=== PATIENT | male | born 1980 | race Caucasian/White ===

== ENCOUNTER 2022-10-29 07:14 | Emergency (ER) | payer SELFPAY ==
[2022-10-29] MEDS ORDERED: Ketorolac Tromethamine 30 MG/ML VIAL ONE (09:02)
== END 2022-10-29 09:57 | disposition home or self-care (01) ==
LOC: ERS 07:14
DX: M79.672 Pain in left foot (principal); F17.210 Nicotine dependence, cigarettes, uncomplicated
CPT/HCPCS: 96372; J1885

== ENCOUNTER 2022-11-13 10:46 | Emergency (ER) | payer SELFPAY | END 2022-11-13 12:26 | disposition home or self-care (01) | LOC: ERS 10:46 | DX: J06.9 Acute upper respiratory infection, unspecified (principal); F17.210 Nicotine dependence, cigarettes, uncomplicated | CPT/HCPCS: 71045; 87804 ==

== ENCOUNTER 2022-11-27 10:35 | Emergency (ER) | payer SELFPAY ==
[2022-11-27] MEDS ORDERED: Ketorolac Tromethamine 30 MG/ML VIAL ONE (11:23)
== END 2022-11-27 11:51 | disposition home or self-care (01) ==
LOC: ERS 10:35
DX: M10.9 Gout, unspecified (principal); F17.210 Nicotine dependence, cigarettes, uncomplicated
CPT/HCPCS: 96372; 99283; J1885

== ENCOUNTER 2023-05-03 21:17 | Emergency (ER) | payer SELFPAY ==
[2023-05-03 22:08] LABS: #Eosinphils 0.2 thou/uL (0.0-0.7); #Monocytes 0.5 thou/uL (0.11-0.59); #Neutrophils 4.8 thou/uL (1.40-6.50); %Basophils 0.3 % (0.0-1.0); %Eosinophils 2.4 % (0.0-10.0); %Lymphocytes 35.5 % (21.0-51.0); %Monocytes 5.8 % (0.0-10.0); %Neutrophils 55.7 % (42.0-75.0); Hemoglobin 15.4 g/dL (14.0-18.0); Mean Corpuscular Hemoglobin 30.4 pg (27.0-31.0); Mean Corpuscular Volume 92.1 fl (78.0-98.0); Mean Platelet Volume 9.1 fL (7.4-10.4); Platelet Count 240 10x3/uL (130-400); RBC Distribution Width 12.3 % (11.5-14.5); Red Blood Cell (RBC) Count 5.07 mill/uL (4.70-6.10); White Blood Cell (WBC) Count 8.7 10x3/uL (4.8-10.8)
[2023-05-03 22:32] LABS: ALT (SGPT) 14 U/L (8-55); AST (SGOT) 16 U/L (5-34); Alkaline Phosphatase 91 U/L (40-110); Anion Gap 11 mmol/L (10-20); BUN (Urea Nitrogen) 13 mg/dL (8.9-20.6); Bilirubin, Total 0.2 mg/dL (0.2-1.2); Calc. Creatinine Clearance 0 mL/min (70-130); Calcium 9.6 mg/dL (7.8-10.44); Carbon Dioxide 29 mmol/L (22-29); Chloride 106 mmol/L (98-107); Estimated GFR 70; Globulin 2.4 g/dL (2.4-3.5); Glucose 108 mg/dL (70-105); Potassium 3.8 mmol/L (3.5-5.1); Protein, Total 6.4 g/dL (6.0-8.3); Sodium 142 mmol/L (136-145); Uric Acid 9.1 mg/dL (3.5-7.2)
== END 2023-05-04 02:44 | disposition home or self-care (01) ==
LOC: ERS 21:17
DX: M10.9 Gout, unspecified (principal)
CPT/HCPCS: 36415; 80053; 84550; 85025

== ENCOUNTER 2023-10-23 10:00 | Emergency (ER) | payer BC, SELFPAY ==
[2023-10-23] MEDS ORDERED: Ketorolac Tromethamine 30 MG/ML VIAL ONE (10:28)
[2023-10-23 10:37] LABS: #Eosinphils 0.1 thou/uL (0.0-0.7); #Monocytes 0.7 thou/uL (0.11-0.59); #Neutrophils 7.5 thou/uL (1.40-6.50); %Basophils 0.3 % (0.0-1.0); %Eosinophils 1.3 % (0.0-10.0); %Lymphocytes 18.9 % (21.0-51.0); %Monocytes 6.8 % (0.0-10.0); %Neutrophils 72.4 % (42.0-75.0); Hematocrit 46.3 % (42.0-52.0); Hemoglobin 15.5 g/dL (14.0-18.0); Mean Corpuscular HGB CONC 33.5 g/dL (32.0-36.0); Mean Corpuscular Volume 92.6 fl (78.0-98.0); Mean Platelet Volume 9.6 fL (7.4-10.4); Platelet Count 276 10x3/uL (130-400); RBC Distribution Width 13.2 % (11.5-14.5); White Blood Cell (WBC) Count 10.3 10x3/uL (4.8-10.8)
[2023-10-23 11:15] LABS: ALT (SGPT) 14 U/L (8-55); AST (SGOT) 17 U/L (5-34); Albumin 4.2 g/dL (3.5-5.0); Alkaline Phosphatase 110 U/L (40-110); Anion Gap 12 mmol/L (10-20); BUN (Urea Nitrogen) 19 mg/dL (8.9-20.6); Bilirubin, Total 1.2 mg/dL (0.2-1.2); Calc. Creatinine Clearance 0 mL/min (70-130); Calcium 9.7 mg/dL (7.8-10.44); Carbon Dioxide 28 mmol/L (22-29); Chloride 104 mmol/L (98-107); Estimated GFR 80; Glucose 118 mg/dL (70-105); Potassium 4.2 mmol/L (3.5-5.1); Protein, Total 7.2 g/dL (6.0-8.3); Sodium 140 mmol/L (136-145)
== END 2023-10-23 11:44 | disposition home or self-care (01) ==
LOC: ERS 10:00
DX: M10.9 Gout, unspecified (principal); F17.210 Nicotine dependence, cigarettes, uncomplicated
CPT/HCPCS: 80053; 85025; 86140; 96372; J1885

== ENCOUNTER 2023-11-07 13:06 | Emergency (ER) | payer BC ==
[2023-11-07] MEDS ORDERED: Ketorolac Tromethamine 30 MG/ML VIAL ONE (14:09)
[2023-11-07 16:03] LABS: #Eosinphils 0.2 thou/uL (0.0-0.7); #Monocytes 0.7 thou/uL (0.11-0.59); #Neutrophils 7.9 thou/uL (1.40-6.50); %Basophils 0.2 % (0.0-1.0); %Lymphocytes 19.2 % (21.0-51.0); %Monocytes 6.7 % (0.0-10.0); %Neutrophils 71.7 % (42.0-75.0); Hematocrit 45.7 % (42.0-52.0); Hemoglobin 15.4 g/dL (14.0-18.0); Mean Corpuscular HGB CONC 33.7 g/dL (32.0-36.0); Mean Corpuscular Volume 92.1 fl (78.0-98.0); Mean Platelet Volume 9.1 fL (7.4-10.4); Platelet Count 302 10x3/uL (130-400); RBC Distribution Width 12.7 % (11.5-14.5); Red Blood Cell (RBC) Count 4.96 mill/uL (4.70-6.10); White Blood Cell (WBC) Count 10.9 10x3/uL (4.8-10.8)
[2023-11-07] MEDS ORDERED: Thiamine HCl 200 MG/2 ML VIAL ONE (16:18)
[2023-11-07] MEDS ORDERED: LORazepam 2 MG/ML SYR.(CARPUJECT) ONE (16:18)
[2023-11-07 16:24] LABS: Acetaminophen Less than 10 mcg/mL (10.0-30.0); Alcohol Less than 10.0 mg/dL (Less than 10); Salicylate Less than 8.0 mg/dL (15.0-30.0)
[2023-11-07 16:25] LABS: ALT (SGPT) 15 U/L (8-55); AST (SGOT) 18 U/L (5-34); Albumin 4.7 g/dL (3.5-5.0); Alkaline Phosphatase 111 U/L (40-110); Anion Gap 13 mmol/L (10-20); BUN (Urea Nitrogen) 15 mg/dL (8.9-20.6); Bilirubin, Total 1.1 mg/dL (0.2-1.2); Calc. Creatinine Clearance 0 mL/min (70-130); Calcium 9.9 mg/dL (7.8-10.44); Carbon Dioxide 28 mmol/L (22-29); Chloride 104 mmol/L (98-107); Estimated GFR 69; Globulin 3.1 g/dL (2.4-3.5); Glucose 119 mg/dL (70-105); Potassium 3.5 mmol/L (3.5-5.1); Protein, Total 7.8 g/dL (6.0-8.3); Sodium 141 mmol/L (136-145)
[2023-11-07 18:37] LABS: Bacteria/HPF None Seen HPF (None Seen); Bilirubin Negative (Negative); Blood, Urine Negative (Negative); CAUTI Indications for Culture Dysuria,urgency,freq; Clarity Clear (Clear); Glucose, Urine (Dipstick) Normal (Negative); Ketone, Urine Negative (Negative); Leukocyte Negative Leu/uL (Negative); Nitrite Negative (Negative); Protein, Urine (Dipstick) 30 mg/dL (Neg-Trace); RBC/HPF 0-3 HPF (0-3); Specific Gravity, Urine 1.023 (1.002-1.036); Squamous Epithelial None Seen HPF (0-3); Urobilinogen Normal mg/dL (Less than 2); WBC/HPF 0-3 HPF (0-3); pH, Urine 5.5 (5.0-9.0)
[2023-11-07 18:43] LABS: Urine Culture Reflex No No
[2023-11-07 18:45] LABS: Amphetamine Detected (NotDetected); Barbiturates Screen Not Detected (NotDetected); Benzodiazepine Screen Not Detected (NotDetected); Cocaine Metabolite Screen Not Detected (NotDetected); Methadone Not Detected (NotDetected); Methamphetamine Detected (NotDetected); Opiate Screen Not Detected (NotDetected); Oxycodone Screen Not Detected (NotDetected); Phencyclidine (PCP) Not Detected (NotDetected); THC/Cannabinoid Screen Detected (NotDetected); Tricyclic Screen Not Detected (NotDetected)
[2023-11-07 18:49] LABS: Free T4 (Free Thyroxine) 0.78 ng/dL (0.70-1.48)
== END 2023-11-07 19:00 | disposition home or self-care (01) ==
LOC: ERS 13:06
DX: S06.0XAA Concussion with loss of consciousness status unknown, initial encounter (principal); F10.239 Alcohol dependence with withdrawal, unspecified; E86.0 Dehydration; R94.6 Abnormal results of thyroid function studies; M25.511 Pain in right shoulder; F17.210 Nicotine dependence, cigarettes, uncomplicated; V89.2XXA Person injured in unspecified motor-vehicle accident, traffic, initial encounter
CPT/HCPCS: 70450; 72125; 80053; 80306; 80307; 81001; 84439; 84443; 84481; 85025; 86140; 93005; 96361; 96372; 96374; 96375; J1885; J2060; J3411

== ENCOUNTER 2023-12-13 10:22 | Emergency (ER) | payer BC ==
[2023-12-13 11:30] LABS: #Eosinphils 0.2 thou/uL (0.0-0.7); #Monocytes 0.4 thou/uL (0.11-0.59); #Neutrophils 6.9 thou/uL (1.40-6.50); %Basophils 0.2 % (0.0-1.0); %Eosinophils 1.7 % (0.0-10.0); %Lymphocytes 19.9 % (21.0-51.0); %Monocytes 4.7 % (0.0-10.0); %Neutrophils 73.2 % (42.0-75.0); Hematocrit 48.1 % (42.0-52.0); Hemoglobin 15.6 g/dL (14.0-18.0); Mean Corpuscular HGB CONC 32.4 g/dL (32.0-36.0); Mean Corpuscular Hemoglobin 30.5 pg (27.0-31.0); Mean Corpuscular Volume 93.9 fl (78.0-98.0); Mean Platelet Volume 9.2 fL (7.4-10.4); Platelet Count 285 10x3/uL (130-400); Red Blood Cell (RBC) Count 5.12 mill/uL (4.70-6.10); White Blood Cell (WBC) Count 9.5 10x3/uL (4.8-10.8)
[2023-12-13 11:50] LABS: ALT (SGPT) 15 U/L (8-55); AST (SGOT) 16 U/L (5-34); Albumin 3.9 g/dL (3.5-5.0); Alkaline Phosphatase 101 U/L (40-110); Anion Gap 12 mmol/L (10-20); BUN (Urea Nitrogen) 15 mg/dL (8.9-20.6); Bilirubin, Total 0.3 mg/dL (0.2-1.2); CRP (Inflammatory) 1.03 mg/dL (= or < 0.5); Calc. Creatinine Clearance 0 mL/min (70-130); Calcium 9.6 mg/dL (7.8-10.44); Carbon Dioxide 26 mmol/L (22-29); Chloride 106 mmol/L (98-107); Estimated GFR 82; Globulin 3.1 g/dL (2.4-3.5); Glucose 99 mg/dL (70-105); Potassium 4.9 mmol/L (3.5-5.1); Sodium 139 mmol/L (136-145)
[2023-12-13] MEDS ORDERED: predniSONE 20 MG TAB ONE (13:27)
[2023-12-13] MEDS ORDERED: Ketorolac Tromethamine 30 MG (1 mL) VIAL ONE (13:27)
[2023-12-13] MEDS ORDERED: Colchicine 0.6 MG TAB ONE (13:29)
== END 2023-12-13 14:11 | disposition home or self-care (01) ==
LOC: ERS 10:22
DX: M10.9 Gout, unspecified (principal); F17.210 Nicotine dependence, cigarettes, uncomplicated
CPT/HCPCS: 36415; 80053; 85025; 86140; 96372; 99283; J1885; J7512

== ENCOUNTER 2023-12-27 10:32 | Emergency (ER) | payer BC ==
[2023-12-27] MEDS ORDERED: Ibuprofen 800 MG TAB ONE (11:08)
[2023-12-27] MEDS ORDERED: Ondansetron ODT 4 MG TAB ONE (11:08)
[2023-12-27 11:52] LABS: SARS-CoV-2 NAA Rapid Test Not Detected (NotDetected)
== END 2023-12-27 12:12 | disposition home or self-care (01) ==
LOC: ERS 10:32
DX: J10.1 Influenza due to other identified influenza virus with other respiratory manifestations (principal); M10.9 Gout, unspecified; F17.210 Nicotine dependence, cigarettes, uncomplicated; Z55.6 Problems related to health literacy; Z75.3 Unavailability and inaccessibility of health-care facilities
CPT/HCPCS: 99284; Q0162

== ENCOUNTER 2024-08-24 07:06 | Emergency (ER) | payer OTHER, SELFPAY ==
[2024-08-24] MEDS ORDERED: Ketorolac Tromethamine 30 MG (1 mL) VIAL ONE (09:16)
[2024-08-24] MEDS ORDERED: Acetaminophen 500 MG TAB ONE (09:16)
== END 2024-08-24 10:32 | disposition home or self-care (01) ==
LOC: ERS 07:06
DX: M10.9 Gout, unspecified (principal); F17.210 Nicotine dependence, cigarettes, uncomplicated
CPT/HCPCS: 96372; 99283; J1885

== ENCOUNTER 2024-09-24 08:10 | Emergency (ER) | payer OTHER ==
[2024-09-24] MEDS ORDERED: Ketorolac Tromethamine 30 MG (1 mL) VIAL ONE (08:40)
== END 2024-09-24 10:55 | disposition home or self-care (01) ==
LOC: ERS 08:10
DX: M25.562 Pain in left knee (principal); F17.210 Nicotine dependence, cigarettes, uncomplicated
CPT/HCPCS: 96372; J1885

== ENCOUNTER 2024-10-02 13:33 | Emergency (ER) | payer OTHER ==
[2024-10-02] MEDS ORDERED: Ibuprofen 200 MG TAB ONE (14:08)
== END 2024-10-02 14:16 | disposition home or self-care (01) ==
LOC: ERS 13:33
DX: M25.521 Pain in right elbow (principal); W21.05XA Struck by basketball, initial encounter; Y93.67 Activity, basketball
CPT/HCPCS: 99283

== ENCOUNTER 2024-10-31 10:40 | Emergency (ER) | payer OTHER ==
[2024-10-31] MEDS ORDERED: HYDROcodone/Acetaminophen 5/325 mg Tablet ONE (11:26)
== END 2024-10-31 11:31 | disposition home or self-care (01) ==
LOC: ERS 10:40
DX: K08.89 Other specified disorders of teeth and supporting structures (principal); F17.210 Nicotine dependence, cigarettes, uncomplicated
CPT/HCPCS: 99282